=== PATIENT | male | born 1970 | race Caucasian/White ===

== ENCOUNTER 2017-12-21 06:13 | Day surgery (SDC) | payer OTHER ==
[~2017-12-21] VITALS: Ht 172.7 cm; Wt 79.5 kg
[~2017-12-21 06:13] MED LIST: ACETAMINOPHEN 325 MG TABLET PO PRN; ATOR20TA86 PO; CYCLOPENTOLATE HCL 2% 2 ML OPHTHALMIC SOLUTION ONE; DICLOFENAC SODIUM 0.1% 2.5 ML OPHTHALMIC SOLUTION OD SCH; KETOROLAC TROMETHAMINE 0.5% 5 ML OPHTHALMIC SOLUTION ONE; METF500T6 PO; MOXIFLOXACIN HCL 0.5% 3 ML OPHTHALMIC SOLUTION ONE; PHENYLEPHRINE HCL 2.5% 2 ML OPHTHALMIC SOLUTION ONE; RINGERS SOLUTION,LACTATED 500 ML IV ONE; TETRACAINE HCL/PF 0.5% 4 ML OPHTHALMIC SOLUTION ONE
[2017-12-21] MEDS ORDERED: MIDAZOLAM HCL 2 MG/2 ML VIAL IVP ONE (06:14)
[2017-12-21] MEDS ORDERED: FentaNYL CITRATE-PF 100 MCG/2 ML VIAL IVP ONE (06:14)
[2017-12-21] MEDS ORDERED: LIDOCAINE HCL/PF 2% 5 ML VIAL IM ONE (06:14)
[2017-12-21] MEDS: PHENYLEPHRINE HCL 2.5% 2 ML OPHTHALMIC SOLUTION OD SCH ×3 (06:53→07:12)
[2017-12-21] MEDS: MOXIFLOXACIN HCL 0.5% 3 ML OPHTHALMIC SOLUTION OD SCH ×3 (06:53→07:13)
[2017-12-21] MEDS: CYCLOPENTOLATE HCL 2% 2 ML OPHTHALMIC SOLUTION OD SCH ×3 (06:53→07:12)
[2017-12-21] MEDS: TETRACAINE HCL/PF 0.5% 4 ML OPHTHALMIC SOLUTION OD SCH ×3 (06:53→07:12)
[2017-12-21 06:55] LABS: GLUCOMETER DEV NAME(LOC) SDS 5; GLUCOSE,POINT OF CARE 132 MG/DL (70-110)
[2017-12-21] MEDS: KETOROLAC TROMETHAMINE 0.5% 5 ML OPHTHALMIC SOLUTION OD SCH ×3 (07:04→07:20)
== END 2017-12-21 08:40 | disposition home or self-care (01) ==
LOC: SURGERY 06:13
PROVIDERS: ATTEND Ophthalmology
DX: E11.36 Type 2 diabetes mellitus with diabetic cataract (principal); H25.11 Age-related nuclear cataract, right eye; E78.00 Pure hypercholesterolemia, unspecified; Z72.89 Other problems related to lifestyle; Z86.13 Personal history of malaria; Z79.84 Long term (current) use of oral hypoglycemic drugs; Z79.899 Other long term (current) drug therapy; Z98.890 Other specified postprocedural states
CPT/HCPCS: 66984; 82962; C1780; J2250; J3010; J3490; J7120